=== PATIENT | female | born 1970 | race Caucasian/White ===

== ENCOUNTER 2021-09-16 06:46 | Day surgery (SDC) | payer BC, OTHER ==
[~2021-09-16 06:46] MED LIST: Lactated Ringers 1,000 ML IV SCH; Sodium Chloride 0.9% 10 ML Syringe FLUSH PRN
[2021-09-16] MEDS ORDERED: Propofol 200 MG/20 ML SDV IV ONE (06:47)
[2021-09-16] MEDS ORDERED: Lidocaine 1% PF 2 ML SDV INJECT ONE (06:47)
== END 2021-09-16 09:17 | disposition home or self-care (01) ==
LOC: FB.SDS 06:46
PROVIDERS: ATTEND Surgery
DX: Z12.11 Encounter for screening for malignant neoplasm of colon (principal); E03.9 Hypothyroidism, unspecified; E66.9 Obesity, unspecified; E78.00 Pure hypercholesterolemia, unspecified; Z88.0 Allergy status to penicillin; Z88.6 Allergy status to analgesic agent; Z88.5 Allergy status to narcotic agent; Z68.33 Body mass index [BMI] 33.0-33.9, adult; Z90.711 Acquired absence of uterus with remaining cervical stump; Z90.89 Acquired absence of other organs; Z98.890 Other specified postprocedural states; Z80.0 Family history of malignant neoplasm of digestive organs; Z79.890 Hormone replacement therapy; Z79.899 Other long term (current) drug therapy
CPT/HCPCS: 45378; J2704; J7120; 00812-QZ

== ENCOUNTER 2024-02-03 12:26 | Emergency (ER) | payer SELFPAY ==
[2024-02-03] MEDS ORDERED: Lidocaine 2% 5 ML SDV INFILT ONE (12:27)
== END 2024-02-03 13:13 | disposition home or self-care (01) ==
LOC: FB.ED 12:26
DX: S61.312A Laceration without foreign body of right middle finger with damage to nail, initial encounter (principal); E78.00 Pure hypercholesterolemia, unspecified; E03.9 Hypothyroidism, unspecified; Z88.6 Allergy status to analgesic agent; Z88.0 Allergy status to penicillin; Z88.8 Allergy status to other drugs, medicaments and biological substances; Z79.51 Long term (current) use of inhaled steroids; Z79.890 Hormone replacement therapy; Z79.899 Other long term (current) drug therapy; X58.XXXA Exposure to other specified factors, initial encounter
CPT/HCPCS: 12001; 99282; 99283